=== PATIENT | female | born 1995 | race Caucasian/White ===

== ENCOUNTER 2017-04-24 04:00 | Inpatient (IN) | payer SELFPAY ==
--- NOTE | 2017-04-24 05:29 | Ultrasound Report ---
FINAL REPORT PROCEDURE: US OB LIMITED TECHNIQUE: Real-time transabdominal sonography of the uterus, placenta, amniotic fluid, adnexa, and fetus was performed with image documentation. Measurements were obtained to determine age/size. M-mode Doppler was used to document heartbeat. CPT 33130 HISTORY: MARGARET, PRESENTATION COMPARISON: No prior studies are available for comparison. FINDINGS: Amniotic fluid index is 5.7 centimeters. This is consistent with oligohydramnios. Fetus is in a cephalic presentation. Heart rate is 132 beats per minute. IMPRESSION: Oligohydramnios. Cephalic presentation
[2017-04-24] MEDS ORDERED: STADOL IV PRN (05:38)
[2017-04-24] MEDS ORDERED: SUBLIMAZE IV PRN (05:38)
[2017-04-24 05:58] LABS: Hematocrit 34.6 % (30.3-42.9); Hemoglobin 11.8 gm/dl (10.1-14.3); Mean Corpuscular HGB Conc 34 % (30-34); Mean Corpuscular Hemoglobin 30 pg (28-32); Mean Corpuscular Volume 89 fl (79-97); Platelet Count 279 K/mm3 (140-440); Red Blood Count 3.89 M/mm3 (3.65-5.03); Red Cell Distribution Width 13.1 % (13.2-15.2); White Blood Count 11.7 K/mm3 (4.5-11.0)
[2017-04-24] MEDS ORDERED: LACTATED RINGERS 1,000 ML IV SCH ×2 (06:00→09:00)
[2017-04-24] MEDS ORDERED: PITOCin/NS 20 UNIT/1000ML DRIP 20 UNITS/1,000 ML BAG IV SCH ×2 (06:00→09:30)
--- NOTE | 2017-04-24 08:33 | History and Physical Report ---
History of Present Illness Date of examination: 04/24/17 Date of admission: 04/24/17 05:10 Chief complaint: my water broke History of present illness: now 39+ weeks with C/O her water breaking at about 2AM. care at [facility] since 21 weeks. GBS neg. Uneventful course. Past History Past Medical History: no pertinent history Past Surgical History: no surgical history Family/Genetic History: none Social history: no significant social history - Obstetrical History Expected Date of Delivery: 04/28/17 Actual Gestation: 39 Week(s) 3 Day(s) : 1 Para: 0 Number of Living Children: 0 Medications and Allergies Allergies Allergy/AdvReac Type Severity Reaction Status Date / Time No Known Allergies Allergy Unverified 04/24/17 04:10 Active Meds: Active Medications Butorphanol Tartrate (Stadol) 2 mg IV Q2H PRN PRN Reason: Labor Pain Fentanyl (Sublimaze) 100 mcg IV PRN PRN PRN Reason: Labor Pain Lactated Ringer's (Lactated Ringers) 1,000 mls @ 125 mls/hr IV DIRECT MARILOU Oxytocin/Sodium Chloride (Pitocin/Ns 20 Unit/1000ml Drip) 20 units in 1,000 mls @ 125 mls/hr IV DIRECT MARILOU Review of Systems All systems: negative - Vital Signs Vital signs: Vital Signs Pulse Pulse Ox 79 97 04/24/17 04:26 04/24/17 04:26 Temp Pulse Resp BP Pulse Ox 98.4 F 68 20 115/74 94 04/24/17 04:28 04/24/17 07:30 04/24/17 04:28 04/24/17 07:30 04/24/17 06:55 - Physical Exam Breasts: Positive: deferred Cardiovascular: Regular rate Lungs: Positive: Clear to auscultation Abdomen: Positive: soft Vulva: both: normal Vagina: Positive: normal moisture Uterus: Positive: enlarged Anus/Rectum: Positive: normal perianal skin Extremities: Positive: normal Deep Tendon Reflex Grade: Normal +2 - Obstetrical FHR: category 1 Uterine Contraction Monitor Mode: External Cervical Dilatation: 2 Uterine Contraction Pattern: Irregular Uterine Contraction Intensity: Mild Results Result Diagrams: 04/24/17 05:26 Abnormal lab results 04/24/17 Range/Units 05:26 WBC 11.7 H (4.5-11.0) K/mm3 RDW 13.1 L (13.2-15.2) % All other labs normal. Assessment and Plan A: Srom at 39 weeks P: Pitocin augmentation Expect
[2017-04-24] MEDS ORDERED: MINERAL OIL PO PRN (09:30)
[2017-04-24] MEDS ORDERED: PITOCin/NS 30 UNIT/500ML 30 UNITS/500 ML BAG IV SCH (09:30)
[2017-04-24] MEDS ORDERED: BRETHINE SUB-Q PRN (09:30)
[2017-04-24] MEDS ORDERED: ePHEDrine SULFATE IV PRN ×2 (09:30→13:03)
[2017-04-24] MEDS ORDERED: XYLOCAINE 2% INFILTRATI ONE (09:30)
[2017-04-24] MEDS ORDERED: BRETHINE IVP PRN (10:00)
[2017-04-24] MEDS ORDERED: NARCAN 2 MG/2 ML IV PRN (13:03)
--- NOTE | 2017-04-24 13:03 | Anesthesia Consultation ---
Anesthesia Consult and Med Hx Date of service: 04/24/17 - Airway Anesthetic Teeth Evaluation: Good ROM Head & Neck: Adequate Mental/Hyoid Distance: Adequate Mallampati Class: Class II Intubation Access Assessment: Probably Good - Pre-Operative Health Status ASA Pre-Surgery Classification: ASA2 Proposed Anesthetic Plan: Epidural, Spinal - Pulmonary Hx Asthma: No COPD: No Hx Pneumonia: No - Cardiovascular System Hx Hypertension: No - Central Nervous System Hx Seizures: No Hx Psychiatric Problems: No - Endocrine Hx Renal Disease: No Hx End Stage Renal Disease: No Hx Hypothyroidism: No Hx Hyperthyroidism: No - Hematic Hx Anemia: No Hx Sickle Cell Disease: No - Other Systems Hx Alcohol Use: No
[2017-04-24] MEDS ORDERED: fentaNYL-BUPIV 2 MCG/ML-0.125% 200 MCG/100 ML BAG EPIDURAL SCH (14:00)
--- NOTE | 2017-04-24 17:19 | Event Note ---
Date: 04/24/17 O: VE -1, CAT I tracing, Pit at 18 mu A: Active labor P: Expect
--- NOTE | 2017-04-24 19:06 | Procedure Note ---
OB Delivery Note - Delivery Date of Delivery: 04/24/17 Surgeon: RUBEN MONTEMAYOR Estimated blood loss: 300cc - Vaginal Delivery presentation: vertex Delivery position: OA Intrapartum events: none Delivery augmentation: pitocin Delivery monitor: external FHT, external uterine Route of delivery: Delivery placenta: spontaneous Delivery cord: 3 umbilical vessels Episiotomy: none Delivery laceration: 2nd degree Delivery repair: vicryl Anesthesia: epidural Delivery comments: of a viable female 6# 1oz @ 1841 on 04/24/17 over 2 degree MLL. Loose nuchal cord x 1. Placenta delivered 3VCI. FF @ [facility] small. Mother and baby doing well. - A at 1 minute: 8 at 5 minutes: 9 Infant Gender: Female (6 # 1oz)
[2017-04-24] MEDS ORDERED: TUCKS PAD TP PRN (19:07)
[2017-04-24] MEDS ORDERED: PHENERGAN PO PRN (19:07)
[2017-04-24] MEDS ORDERED: BENADRYL PO PRN (19:07)
[2017-04-24] MEDS ORDERED: TYLENOL PO PRN (19:07)
[2017-04-24] MEDS ORDERED: LANSINOH TP PRN (19:07)
[2017-04-24] MEDS ORDERED: NORCO 5/325 PO PRN (19:07)
[2017-04-24] MEDS ORDERED: SODIUM CHLORIDE FLUSH SYRINGE 10 ML IV NR (20:00)
[2017-04-24] MEDS ORDERED: MOTRIN PO SCH (20:00)
[2017-04-24] MEDS: MOTRIN PO SCH (23:20)
[2017-04-25] MEDS: MOTRIN PO SCH ×3 (05:40→18:40)
[2017-04-25 08:50] LABS: Hematocrit 33.1 % (30.3-42.9); Hemoglobin 11.4 gm/dl (10.1-14.3)
--- NOTE | 2017-04-25 10:39 | Progress Note ---
Assessment and Plan A: PPD #1 - stable P: Discharge home in am Subjective - Subjective Date of service: 04/25/17 Principal diagnosis: Interval history: now 39+ weeks with C/O her water breaking at about 2AM. care at [facility] since 21 weeks. GBS neg. Uneventful course. Patient reports: appetite normal Strawberry: doing well Objective - Vital Signs Latest vital signs: Vital Signs Temp Pulse Pulse Resp BP BP Pulse Ox 04/25/17 09:55 97.7 F 68 18 101/69 04/25/17 04:45 98.6 F 67 18 113/66 04/25/17 00:40 98.9 F 103 H 18 118/75 04/24/17 20:30 98.6 F 70 16 117/68 04/24/17 20:00 78 129/82 04/24/17 19:45 98 H 127/83 04/24/17 19:30 94 H 127/76 04/24/17 19:15 98.8 F 93 H 93 H 20 126/86 126/86 04/24/17 19:00 88 129/90 04/24/17 18:42 118 H 95 04/24/17 18:40 111 H 94 04/24/17 18:37 107 H 96 04/24/17 18:36 98.7 F 113 H 24 138/71 04/24/17 18:32 112 H 96 04/24/17 18:29 111 H 94 04/24/17 18:27 115 H 96 04/24/17 18:23 110 H 94 04/24/17 18:22 127 H 94 04/24/17 18:18 119 H 94 04/24/17 18:17 119 H 94 04/24/17 18:16 114 H 138/71 04/24/17 18:09 119 H 96 04/24/17 18:03 131 H 87 04/24/17 18:01 141 H 98 04/24/17 18:00 121 H 137/87 04/24/17 17:56 123 H 100 04/24/17 17:51 77 100 04/24/17 17:46 77 147/88 100 04/24/17 17:41 78 100 04/24/17 17:36 77 100 04/24/17 17:32 78 136/85 04/24/17 17:31 92 H 100 04/24/17 17:26 95 H 99 04/24/17 17:21 84 100 04/24/17 17:16 84 99 04/24/17 17:15 74 130/77 04/24/17 17:11 97 H 99 04/24/17 17:06 97.9 F 86 76 18 128/80 99 04/24/17 17:01 99 H 128/80 100 04/24/17 16:56 79 100 04/24/17 16:51 89 99 04/24/17 16:46 77 123/75 99 04/24/17 16:41 75 99 04/24/17 16:36 81 100 04/24/17 16:31 73 100 04/24/17 16:30 86 125/78 04/24/17 16:26 79 99 04/24/17 16:21 74 100 04/24/17 16:16 73 99 04/24/17 16:15 73 116/69 04/24/17 16:11 74 99 04/24/17 16:06 76 99 04/24/17 16:02 77 123/78 04/24/17 16:01 72 100 04/24/17 15:56 77 99 04/24/17 15:51 67 100 04/24/17 15:46 65 99 04/24/17 15:45 76 119/80 04/24/17 15:41 71 99 04/24/17 15:36 77 99 04/24/17 15:31 74 98 04/24/17 15:30 75 116/77 04/24/17 15:26 86 100 04/24/17 15:21 71 100 04/24/17 15:16 82 113/71 99 04/24/17 15:11 76 99 04/24/17 15:06 79 99 04/24/17 15:01 68 99 04/24/17 15:00 65 119/62 04/24/17 14:56 68 100 04/24/17 14:51 65 99 04/24/17 14:46 80 114/70 99 04/24/17 14:41 72 100 04/24/17 14:36 71 100 04/24/17 14:31 78 100 04/24/17 14:30 96.9 F L 75 73 20 121/72 121/72 04/24/17 14:26 59 L 100 06/30/17 14:21 60 100 04/24/17 14:16 67 100 04/24/17 14:15 72 124/76 04/24/17 14:11 66 100 04/24/17 14:06 77 100 04/24/17 14:01 74 100 04/24/17 14:00 72 122/71 04/24/17 13:56 65 99 04/24/17 13:51 66 100 04/24/17 13:46 70 115/64 99 04/24/17 13:41 68 100 04/24/17 13:36 77 100 04/24/17 13:31 71 100 04/24/17 13:28 78 118/70 04/24/17 13:26 79 115/67 100 04/24/17 13:24 78 115/67 04/24/17 13:22 77 120/64 04/24/17 13:21 75 99 04/24/17 13:20 76 118/67 04/24/17 13:18 71 125/66 04/24/17 13:16 69 131/77 98 04/24/17 13:12 85 121/73 04/24/17 13:11 80 98 04/24/17 13:10 78 118/73 04/24/17 13:09 70 124/76 04/24/17 13:06 75 98 04/24/17 13:01 78 96 04/24/17 12:44 62 137/76 04/24/17 12:21 74 144/90 04/24/17 12:14 71 144/82 04/24/17 11:45 97.7 F 71 20 131/81 04/24/17 11:43 70 131/81 04/24/17 11:13 60 131/79 Intake and Output 04/24/17 04/25/17 04/25/17 22:59 06:59 14:59 Intake Total 375 610 240 Output Total 1050 900 400 Balance -675 -290 -160 Intake: IV 375 250 PITOCin/NS 20 UNIT/1000ML 375 250 DRIP 20 units In 1,000 ml @ 125 mls/hr IV DIRECT MARILOU Rx#:[id number] Oral 240 Intake, Free Water 360 Output: Urine 1050 900 400 Indwelling Catheter 1050 Void 900 400 Other: Total, Intake Amount 240 Total, Output Amount 1050 400 400 # Voids Void 1 1 Estimated Blood Loss 300 - Exam Breasts: Present: deferred Cardiovascular: Present: Regular rate Lungs: Present: Clear to auscultation Abdomen: Present: soft Vulva: both: normal Uterus: Present: fundal height at umbilicus Extremities: Present: normal Deep Tendon Reflex Grade: Normal +2
--- NOTE | 2017-04-25 10:41 | Discharge Summary ---
Providers - Providers Date of Admission: 04/24/17 05:10 Date of discharge: 04/26/17 Attending physician: CLARA PATE MD Primary care physician: CLARA PATE MD Hospitalization Reason for admission: rupture of membranes Delivery: Episiotomy: none Laceration: 2nd degree complications: none Discharge diagnosis: IUP at term delivered baby: female Condition at discharge: Good Disposition: DC-01 TO HOME OR SELFCARE Plan - Provider Discharge Summary Activity: routine, no sex for 6 weeks, no strenuous exercise Diet: routine Instructions: routine Additional instructions: [] Smoking cessation referral if applicable(refer to patient education folder for contact #) [] Refer to [facility] Booklet Call your doctor immediately for: * Fever > 100.5 * Heavy vaginal bleeding ( >1 pad per hour) * Severe persistent headache * Shortness of breath * Reddened, hot, painful area to leg or breast * Drainage or odor from incision. * Keep incision clean and dry at all times and follow doctor's instructions regarding bathing/showering - Follow up plan Follow up: [facility] [Provider Group] - 6 Weeks
[2017-04-26] MEDS: MOTRIN PO SCH (00:20)
[2017-04-26 10:22] VITALS: BP 113/65
== END 2017-04-26 14:50 | disposition home or self-care (01) | DRG 775 ==
LOC: TRG 04:00 → LD 05:10 → OB 20:22
PROVIDERS: ADMIT Obstetrics & Gynecology; ATTEND Obstetrics & Gynecology
PROC: 10E0XZZ Delivery of Products of Conception, External Approach (ICD-10-PCS; principal; 2017-04-24)
PROC: 0KQM0ZZ Repair Perineum Muscle, Open Approach (ICD-10-PCS; 2017-04-24)
PROC: 3E0S3CZ (ICD-10-PCS; 2017-04-24)
PROC: 00HU33Z Insertion of Infusion Device into Spinal Canal, Percutaneous Approach (ICD-10-PCS; 2017-04-24)
DX: O69.81X0 Labor and delivery complicated by cord around neck, without compression, not applicable or unspecified (principal); O70.1 Second degree perineal laceration during delivery; Z3A.39 39 weeks gestation of pregnancy; Z37.0 Single live birth
CPT/HCPCS: 36415; 76815; 85014; 85018; 85027; 86850; 86900; 86901; J0595; J2590; J3010; J7120